=== PATIENT | male | born 1990 | race Caucasian/White ===

== ENCOUNTER 2017-05-22 08:42 | Emergency (ER) | payer BC, OTHER ==
[2017-05-22] MEDS ORDERED: Ketorolac 60 MG/2 ML SDV IM ONE (09:12)
[2017-05-22] MEDS ORDERED: methylPREDNISolone Sodium Succinate 125 MG/2 ML SDV IM ONE (09:12)
--- NOTE | 2017-05-22 09:22 | EDM.PDOC ---
ED HPI GENERAL MEDICAL PROBLEM - General Chief Complaint: ENT Problem Stated Complaint: STREP THROAT NOT GETTING BETTER Time Seen by Provider: 05/22/17 09:05 Source of Information: Reports: Patient History Limitations: Reports: No Limitations - History of Present Illness INITIAL COMMENTS - FREE TEXT/NARRATIVE: 26 YO WM presents to ER complaining of sore throat and tonsilar swelling x 4 days. Pt reports he was seen in clinic and started on a zpak without much improvement. Pt denies any dizziness or difficulty breathing, but states he has had increased difficulty swallowing. pt reports he's able to swallow pills at this time. Pt with subjective fever and chills. Onset Date: 05/20/17 Duration: Day(s): (3) Location: Reports: Neck Quality: Reports: Ache Improves with: Reports: None Worsens with: Reports: Other (swallowing) Associated Symptoms: Reports: No Other Symptoms. Denies: Fever/Chills, Rash Throat Pain Score (Numeric/FACES): 7 - Related Data Allergies Allergy/AdvReac Type Severity Reaction Status Date / Time No Known Drug Allergies Allergy Cannot Verified 05/22/17 08:49 Remember Home Meds: Home Meds Amoxicillin/Clavulanate K [Augmentin 875 MG/125 MG] 1 tab PO Q12HR #20 tablet [Rx] predniSONE 20 mg PO WITHBREAKFAST #15 tablet 05/22/17 [Rx] Social & Family History - Tobacco Use Smoking Status *Q: Never Smoker Used Tobacco, but Quit: No Second Hand Smoke Exposure: No - Caffeine Use Caffeine Use: Reports: Soda - Recreational Drug Use Recreational Drug Use: No ED ROS ENT - Review of Systems Review Of Systems: See Below Constitutional: Reports: Fever, Chills, Malaise HEENT: Reports: Throat Pain Respiratory: Reports: No Symptoms. Denies: Shortness of Breath Cardiovascular: Reports: No Symptoms Endocrine: Reports: No Symptoms GI/Abdominal: Reports: No Symptoms : Reports: No Symptoms Musculoskeletal: Reports: No Symptoms Skin: Reports: No Symptoms Neurological: Reports: No Symptoms Psychiatric: Reports: No Symptoms Hematologic/Lymphatic: Reports: No Symptoms Immunologic: Reports: No Symptoms ED EXAM, ENT - Physical Exam Exam: See Below Exam Limited By: No Limitations General Appearance: Alert, WD/WN, No Apparent Distress Ears: Normal External Exam, Normal Canal, Hearing Grossly Normal, Normal TMs Nose: Normal Inspection, Normal Mucousa, No Blood Mouth/Throat: Pharyngeal Erythema, Tonsillar Erythema, Tonsillar Exudates, Tonsillar Swelling. No: Tongue Swelling, Trismus, Uvular Deviation, Uvular Edema Neck: Supple, Full Range of Motion, Lymphadenopathy (L), Lymphadenopathy (R) Respiratory/Chest: No Respiratory Distress, Lungs Clear, Normal Breath Sounds, No Accessory Muscle Use, Chest Non-Tender Cardiovascular: Normal Peripheral Pulses, Regular Rate, Rhythm, No Edema, No Gallop, No JVD, No Murmur, No Rub GI/Abdominal: Normal Bowel Sounds, Soft, Non-Tender, No Organomegaly, No Distention, No Abnormal Bruit, No Mass Back: Normal Inspection, Full Range of Motion Extremities: Normal Inspection, Normal Range of Motion, Non-Tender, No Pedal Edema, Normal Capillary Refill Neurological: Alert, Oriented, CN II-XII Intact, Normal Cognition, Normal Gait, Normal Reflexes, No Motor/Sensory Deficits Psychiatric: Normal Affect, Normal Mood Skin: Warm, Dry, Intact, Normal Color, No Rash Course - Vital Signs Last Recorded V/S: Last Vital Signs Temp 37.4 C 05/22/17 08:46 Pulse 111 H 05/22/17 08:46 Resp 16 05/22/17 08:46 BP 150/86 H 05/22/17 08:46 Pulse Ox 95 05/22/17 08:46 Departure - Departure Time of Disposition: 09:30 Disposition: Home, Self-Care 01 Condition: Good Clinical Impression: Acute bacterial tonsillitis - Discharge Information Prescriptions: Amoxicillin/Clavulanate K [Augmentin 875 MG/125 MG] 1 tab PO Q12HR #20 tablet predniSONE 20 mg PO WITHBREAKFAST #15 tablet Instructions: Tonsillitis Referrals: Tona Linares PA-C [Primary Care Provider] - - Assessment/Plan Assessment:: 1. acute tonsillitis Plan: 1. augmentin 875mg PO BIDx 10 days 2. prednisone 60mg PO QD x 5 days 3. stop zpak 4. push fluids 5. follow up in clinic wednesdaymay 25 for recheck 6. return to ER for worsening symptoms or difficulty breathing
== END 2017-05-22 09:35 | disposition home or self-care (01) ==
LOC: KA.ED 08:42
DX: J03.80 Acute tonsillitis due to other specified organisms (principal); B96.89 Other specified bacterial agents as the cause of diseases classified elsewhere
CPT/HCPCS: 99283; J1885; J2930; 96372